=== PATIENT | male | born 1990 | race African-American/Black ===

== ENCOUNTER 2019-07-30 18:10 | Emergency (ER) | payer OTHER ==
--- NOTE | 2019-07-30 18:18 | PDOC ---
Rapid Medical Evaluation Chief Complaint: Pain, Acute Time Seen by Provider: 07/30/19 18:17 Medical Evaluation: 07/30/19 18:17 I have performed a brief in-person evaluation of this patient. The patient presents with a chief complaint of: right knee swelling Pertinent physical exam findings:stable and in NAD, non-focal I have ordered the following:labs The patient will proceed to the ED for further evaluation. Discharge Disposition - Discharge Dispostion Condition at time of disposition: Stable - Referrals - Patient Instructions - Post Discharge Activity
[2019-07-30 18:36] LABS: BASO % 1.3 % (0-2.0); EOS % 1.9 % (0-4.5); HEMOGLOBIN 11.7 GM/dL (11.7-16.9); LYMPH % 23.5 % (8-40); MCH 27.9 pg (25.7-33.7); MCHC 33.4 g/dl (32.0-35.9); MEAN CELL VOLUME 83.6 fl (80-96); MEAN PLT VOLUME 8.3 fl (7.5-11.1); MONO % 10.4 % (3.8-10.2); NEUT % 62.9 % (42.8-82.8); PLATELET COUNT 360 K/MM3 (134-434); RBC 4.19 M/mm3 (4.00-5.60); RDW 13.7 % (11.9-15.9)
--- NOTE | 2019-07-30 18:37 | PDOC ---
History of Present Illness - General Chief Complaint: Pain, Acute Stated Complaint: R KNEE PAIN Time Seen by Provider: 07/30/19 18:17 - History of Present Illness Initial Comments: 07/30/19 18:37 CHIEF COMPLAINT: Pain and swelling to R knee HISTORY OF PRESENT ILLNESS: 29 yo M with hx of IDDM, nephrotic sydrome, CKD, HTN , presents ED with R knee swelling and worsening pain x 2 days. Patient reports he went to see his PCP today and was sent to the ER to r/o septic arthritis due to pain with flexion/extension of his knee. Patient states he is fully ambulatory and weight bearing but with pain. No recent travel or sick contacts. PAST MEDICAL HISTORY: Denies past medical history FAMILY HISTORY: Denies SOCIAL HISTORY: Denies tobacco, alcohol, illicit drug use. SURGICAL HISTORY: Denies ALLERGIES: No known drug allergies REVIEW OF SYSTEMS General/Constitutional: Denies fever or chills. Denies weakness, weight change. HEENT: Denies change in vision. Denies ear pain or discharge. Denies sore throat. Cardiovascular: Denies chest pain or shortness of breath. Respiratory: Denies cough, wheezing, or hemoptysis. Gastrointestinal: Denies nausea, vomiting, diarrhea or constipation. Denies rectal bleeding. Genitourinary: Denies dysuria, frequency, or change in urination. Musculoskeletal: Pain and swelling to R knee. Skin and breasts: Denies rash or easy bruising. Neurologic: Denies headache, vertigo, loss of consciousness, or loss of sensation. Psychiatric: Denies depression or anxiety. PHYSICAL EXAM General Appearance: Well-appearing, appropriately dressed. No apparent distress. HEENT: EOMI, PERRLA, normal ENT inspection, normal voice, TMs normal, pharynx normal. No conjunctival pallor. No photophobia, scleral icterus. Neck: Supple. Trachea midline. No tenderness, rigidity, carotid bruit, stridor , lymphadenopathy, or thyromegaly. Respiratory/Chest: Lungs CTAB. No shortness of breath, chest tenderness, respiratory distress, accessory muscle use. No crackles, rales, rhonchi, stridor , wheezing, dullness Cardiovascular: RRR. S1, S2. No JVD, murmur, bradycardia, tachycardia. Vascular Pulses: Dorsalis-Pedis (R): 2+, Dorsalis-Pedis (L): 2+ Gastrointestinal/Abdominal: Normal bowel sounds. Abdomen soft, non-distended. No tenderness or rebound tenderness. No organomegaly, pulsatile mass, guarding , hernia, hepatomegaly, splenomegaly. Musculoskeletal/Extremities: Swelling to R knee, full flexion/extension. Normal inspection. FROM of all extremities, normal capillary refill. Pelvis Stable. No CVA tenderness. No tenderness to extremities, pedal edema, swelling , erythema or deformity. Integumentary: Appropriate color, dry, warm. No cyanosis, erythema, jaundice or rash Neurologic: sales executive II-XII intact. Fully oriented, alert. Appropriate mood/affect. Motor strength 5/5. No appreciable EOM palsy, facial droop or sensory deficit. Past History - Past Medical History Allergies/Adverse Reactions: Allergies Allergy/AdvReac Type Severity Reaction Status Date / Time No Known Allergies Allergy Verified 07/30/19 18:19 Home Medications: Ambulatory Orders Atorvastatin Calcium 40 mg PO DAILY 07/30/19 Carvedilol 12.5 mg PO DAILY 07/30/19 Furosemide 40 mg PO DAILY 07/30/19 Insulin Detemir [Levemir Flextouch] 14 unit SQ HS 07/30/19 Lisinopril [Prinivil -] 40 mg PO DAILY 07/30/19 Nifedipine [Nifedipine ER] 90 mg PO DAILY 07/30/19 predniSONE [Deltasone -] 60 mg PO DAILY #9 tablet 07/30/19 COPD: No Diabetes: Yes HTN: Yes Other medical history: nephrotic syndrome and CKD - Immunization History Immunization Up to Date: No - Psycho Social/Smoking Cessation Hx Smoking History: Never smoked Have you smoked in the past 12 months: No Information on smoking cessation initiated: No Hx Alcohol Use: No Drug/Substance Use Hx: No *Physical Exam - Vital Signs Last Vital Signs Temp Pulse Resp BP Pulse Ox 98.2 F 86 18 143/79 98 07/30/19 18:17 07/30/19 18:17 07/30/19 18:17 07/30/19 18:17 07/30/19 18:17 ED Treatment Course - LABORATORY CBC & Chemistry Diagram: 07/30/19 18:26 07/30/19 18:26 - ADDITIONAL ORDERS Additional order review: 07/30/19 18:26 RBC 4.19 MCV 83.6 MCHC 33.4 RDW 13.7 MPV 8.3 Neutrophils % 62.9 Lymphocytes % 23.5 Monocytes % 10.4 H Eosinophils % 1.9 Basophils % 1.3 Medical Decision Making - Medical Decision Making 07/30/19 18:46 29 yo M with hx of IDDM, nephrotic sydrome, CKD, HTN, presents ED with R knee swelling and worsening pain x 2 days. -labs -knee x-ray 07/30/19 19:[address] Ayoub who believes patient's creatinine of 4.9 "is around his baseline", she does not believe that this is an acute on chronic renal failure. 07/30/19 21:38 Discussed case with on-call orthopedist Dr. Lopez, who agrees there does not appear to be any clinical indication for joint aspiration as patient has no white count, has stable VS, and full ROM to R knee. Uric acid 7.8, likely pain and swelling secondary to gout. Prednisone, f/u with ortho Discharge - Discharge Information Problems reviewed: Yes Clinical Impression/Diagnosis: Gout Condition: Stable Disposition: HOME - Admission No - Additional Discharge Information Prescriptions: predniSONE [Deltasone -] 60 mg PO DAILY #9 tablet - Follow up/Referral Referrals: Yvonne Ayoub MD [Primary Care Provider] - Josse Lopez DO [Staff Physician] - - Patient Discharge Instructions Patient Printed Discharge Instructions: DI for Gout Additional Instructions: Please take medications as prescribed. You must follow up with Dr. Kong and Dr. Lopez this week for continued evaluation of your knee pain. If your knee becomes hot or red, or develop a fever, chills, nausea, vomiting or diarrhea, please return to the ER immediately. - Post Discharge Activity Work/Back to School Note: Back to Work
[2019-07-30 18:38] VITALS: BP 143/79; PULSE 86; TEMP 98.2; BMI 30.3
--- NOTE | 2019-07-30 18:38 | PDOC ---
*Physical Exam - Vital Signs Last Vital Signs Temp Pulse Resp BP Pulse Ox 98.2 F 86 18 143/79 98 07/30/19 18:17 07/30/19 18:17 07/30/19 18:17 07/30/19 18:17 07/30/19 18:17 ED Treatment Course - LABORATORY CBC & Chemistry Diagram: 07/30/19 18:26 07/30/19 18:26 - ADDITIONAL ORDERS Additional order review: 07/30/19 18:26 RBC 4.19 MCV 83.6 MCHC 33.4 RDW 13.7 MPV 8.3 Neutrophils % 62.9 Lymphocytes % 23.5 Monocytes % 10.4 H Eosinophils % 1.9 Basophils % 1.3 Medical Decision Making - Medical Decision Making 07/30/19 18:37 Pt seen by Midlevel Provider under my direct supervision Ancillary studies reviewed I agree with plan as outlined by Midlevel Provider Discharge - Discharge Information Problems reviewed: Yes Clinical Impression/Diagnosis: Gout Qualifiers: Gout site: knee Gout etiology: unspecified cause Chronicity: acute Laterality: left Qualified Code(s): M10.9 - Gout, unspecified Condition: Stable Disposition: HOME - Admission No - Additional Discharge Information Prescriptions: predniSONE [Deltasone -] 60 mg PO DAILY #9 tablet - Follow up/Referral Referrals: Yvonne Ayoub MD [Primary Care Provider] - Josse Lopez DO [Staff Physician] - - Patient Discharge Instructions Patient Printed Discharge Instructions: DI for Gout Additional Instructions: Please take medications as prescribed. You must follow up with Dr. Kong and Dr. Lopez this week for continued evaluation of your knee pain. If your knee becomes hot or red, or develop a fever, chills, nausea, vomiting or diarrhea, please return to the ER immediately. - Post Discharge Activity Work/Back to School Note: Back to Work
[2019-07-30 19:07] LABS: ALBUMIN 2.5 g/dl (3.4-5.0); BILIRUBIN,TOTAL 0.2 mg/dL (0.2-1); BLOOD UREA NITROGEN 73.1 mg/dL (7-18); CREATININE 4.9 mg/dL (0.55-1.3); POTASSIUM 4.6 mmol/L (3.5-5.1); TOT PROT 6.4 g/dl (6.4-8.2)
[2019-07-30 21:00] LABS: URIC ACID 7.8 mg/dL (2.6-7.2)
[2019-07-30] MEDS ORDERED: predniSONE 20 MG TABLET (UD) PO ONE (21:32)
[2019-07-30] MEDS ORDERED: predniSONE 20 MG TABLET (UD) ONE (21:47)
== END 2019-07-30 22:22 | disposition home or self-care (01) ==
LOC: JER 18:10
DX: M10.9 Gout, unspecified (principal); I12.9 Hypertensive chronic kidney disease with stage 1 through stage 4 chronic kidney disease, or unspecified chronic kidney disease; E10.22 Type 1 diabetes mellitus with diabetic chronic kidney disease; N18.9 Chronic kidney disease, unspecified; Z79.4 Long term (current) use of insulin; E10.21 Type 1 diabetes mellitus with diabetic nephropathy
CPT/HCPCS: 36415; 73562-TC-RT-FY; 80053; 84550; 85025; 99282-25

== ENCOUNTER → 2019-08-26 | Day surgery (SDC) | payer OTHER ==
[2019-08-25 12:50] VITALS: BMI 30.9
[~2019-08-26] MED LIST: LABETALOL HCL 100 MG TABLET (FP) PO ONE; LABETALOL HCL 200 MG TABLET (FP) PO ONE; NIFEdipine E.R 60 MG TABLET (UD) PO ONE
[2019-08-26 09:40] LABS: INR 0.93 (0.83-1.09)
[2019-08-26 11:46] VITALS: TEMP 98.2
[2019-08-26 14:49] VITALS: BP 135/86; PULSE 89
== END | disposition home or self-care (01) ==
LOC: JRADIR 08:16
PROVIDERS: ATTEND Internal Medicine Nephrology
DX: Z53.8 Procedure and treatment not carried out for other reasons (principal)
CPT/HCPCS: 36415; 82962; 85610

== ENCOUNTER 2019-09-01 08:18 | Day surgery (SDC) | payer OTHER ==
[2019-08-31 15:31] VITALS: BMI 30.9
[2019-09-01 08:44] VITALS: TEMP 97.8
[2019-09-01 17:09] VITALS: BP 150/84; PULSE 90
--- NOTE | 2019-09-17 16:14 | PATH ---
Surgical Pathology Report Patient Name: PRANAY SINCLAIR [facility]. Rec. #: [id number] /Age/Gender: 1990 (Age: 29) / M Account: [id number] Location: RADIOLOGY INTER Taken: 09/01/2019 Received: 09/01/2019 Reported: 09/17/2019 Physicians: Den Moreno M.D. Specimen(s) Received RENAL BIOPSY Clinical History 29-year-old male with IDDM, hypertension and CKD stage III now with worsening renal function and nephrotic range proteinuria, diabetic nephropathy versus FSGS Intraoperative Consult Diagnosis Renal biopsy: Glomeruli present. Patricia Herrera M.D., 09/01/2019 Final Diagnosis RENAL, BIOPSY NODULAR DIABETIC GLOMERULAR SCLEROSIS, MODERATE TUBULAR ATROPHY AND INTERSTITIAL FIBROSIS, MODERATE. ARTERIO-AND ARTERIOSCLEROSIS, MODERATE TO SEVERE. Comment: Immunofluorescence microscopy shows no evidence of renal disease of the immune complex type. Two additional globally sclerotic glomeruli are seen. Electron microscopy is pending and will be reported separately in an addendum. This case was sent to Dr. Juan Diego Trotter of [place], [place] ([id number]) the diagnosis above reflects his opinion. Microscopic Description: Sections are stained with H&E, PAS, trichrome, and JMS. Sections show 1 core of renal cortex with attached capsule. Five (5) glomeruli are seen, none of which show segmental or global sclerosis. Glomeruli are moderately enlarged and show moderate nodular mesangial sclerosis and diffuse thickening of basement membranes. No crescents, fibrinoid necrosis or fibrin thrombi are seen. Tubular basements membranes are diffusely thickened. There is moderate patchy tubular atrophy and interstitial fibrosis affecting 50% of the cortical area, accompanied by a patchy mononuclear inflammatory cell infiltrate. No interstitial eosinophils or granulomas are seen. Arteries show moderate intimal fibrosis and arterioles show moderate hyalinosis. There is no evidence of arteritis. IMMUNOFLUORESCENCE (PROCEDURE): Interpretation: GLOMERULI TUBULES INTERSTITIUM VESSELS IgG 9 gloms 1+ TBM's 1+ neg neg global linear GCW linear IgM 5 of 9 gloms 1+ neg neg arteriole kolb 1+ Seg tuft IgA 9 gloms neg casts 1+ neg neg C3 9 gloms 2+ neg neg arteriole wall 1+ Global gran mes C1 6 of 9 gloms 1+ neg neg neg Seg tuft FBGN 9 gloms neg neg neg neg ALB 9 gloms 1+ TBM's 1+ neg neg global linear GCW linear KAPPA 9 glom neg casts 1+ neg neg LAMBDA 9 gloms neg casts 1+ neg neg Positive and negative controls show appropriate reactivity. See [facility] report for additional details ([id number]). Electronically Signed Maryellen López M.D. Gross Description Received in saline labeled "renal biopsy," is a 1.1 cm in length x 0.1 cm in diameter [place]-red, cylindrical portion of soft tissue. The specimen is divided, placed into 10% buffered formalin, Jordy fixative and glutaraldehyde. The specimen is sent to [facility] for further studies. 09/01/2019 saudi09/01/2019
== END 2019-09-01 17:00 | disposition home or self-care (01) ==
LOC: JRADIR 08:18
PROVIDERS: ATTEND Internal Medicine Nephrology
PROC: 0TB03ZX Excision of Right Kidney, Percutaneous Approach, Diagnostic (ICD-10-PCS; principal; 2019-09-01)
DX: N26.9 Renal sclerosis, unspecified (principal); I12.9 Hypertensive chronic kidney disease with stage 1 through stage 4 chronic kidney disease, or unspecified chronic kidney disease; E11.22 Type 2 diabetes mellitus with diabetic chronic kidney disease; N18.3 Chronic kidney disease, stage 3 (moderate)
CPT/HCPCS: 50200; 76942-TC; 82962

== ENCOUNTER 2019-09-22 06:02 | Emergency (ER) | payer OTHER ==
[2019-09-22 06:56] VITALS: BP 167/95; PULSE 95; TEMP 98; BMI 30.3
--- NOTE | 2019-09-22 07:26 | PDOC ---
History of Present Illness - General Chief Complaint: Edema Stated Complaint: SWELLING,KNEES Time Seen by Provider: 09/22/19 07:13 History Source: Patient - History of Present Illness Occurred: reports: other Lower Extremity Pain Location: bilateral: other (thigh) Past History - Past Medical History Allergies/Adverse Reactions: Allergies Allergy/AdvReac Type Severity Reaction Status Date / Time No Known Allergies Allergy Verified 09/22/19 06:56 Home Medications: Ambulatory Orders Atorvastatin Calcium 40 mg PO DAILY 07/30/19 Insulin Detemir [Levemir Flextouch] 16 unit SQ HS 08/26/19 Insulin Sliding Scale [Novolog Vial Sliding Scale -] 100 units SQ ASDIR Labetalol HCl 100 mg PO BID 08/26/19 Sodium Zirconium Cyclosilicate [Lokelma] 10 gm PO DAILY 08/26/19 Torsemide 20 mg PO DAILY 08/26/19 Acetaminophen [Tylenol -] 1,000 mg PO Q6H #30 tablet 09/22/19 Anemia: No Asthma: No Cancer: No Cardiac Disorders: No CVA: No COPD: No CHF: No Dementia: No Diabetes: Yes (DM X 10 YEARS) GI Disorders: No Disorders: No HTN: Yes Hypercholesterolemia: No Liver Disease: No Seizures: No Thyroid Disease: No - Immunization History Immunization Up to Date: No - Psycho Social/Smoking Cessation Hx Smoking History: Never smoked Have you smoked in the past 12 months: No Hx Alcohol Use: Yes (SOCIAL) Drug/Substance Use Hx: No Substance Use Type: None Hx Substance Use Treatment: No Review of Systems - Review of Systems Constitutional: No: Chills, Fever Musculoskeletal: No: Joint Pain, Joint Swelling *Physical Exam - Vital Signs Last Vital Signs Temp Pulse Resp BP Pulse Ox 98 F 95 H 19 167/95 100 09/22/19 06:10 09/22/19 06:10 09/22/19 06:10 09/22/19 06:10 09/22/19 06:10 - Physical Exam General Appearance: Yes: Appropriately Dressed. No: Apparent Distress HEENT: positive: Normal Voice Respiratory/Chest: negative: Respiratory Distress Extremity: positive: Other (possibly mild swelling to distal L thigh compard to R, no swelling to knee joint, FROMI, ambulating in ER) Integumentary: positive: Dry, Warm Neurologic: positive: Fully Oriented, Alert, Normal Mood/Affect ED Treatment Course - LABORATORY CBC & Chemistry Diagram: 09/22/19 08:05 09/22/19 08:05 Medical Decision Making - Medical Decision Making 09/22/19 07:20 29 yo M, IDDM, nephrotic syndrome, HTN, CKD, here w/ b/l LE pain. Patient states 4 days ago he developed pain to distal left thigh unable to describe 6 out of 10 and worse with range of motion. Not taking anything for pain. At some point reports pain to right thigh though not as severe as on the left. No trauma or other obvious inciting factors. No recent travel. No fever or chills. Patient reports he might of had gout in the past possibly right knee. No joint swelling at this time. Of note, patient was seen here 07/2019 for R knee pain and swelling and found to have uric acid of 7.8. Was told to follow- up with orthopedist, Dr Lopez which patient did. States joint was aspirated and was told he had gout. No history of septic joint See exam B/l thigh pain, L>>R H/o gout though no joint swelling on exam today No f/c -As d/w ED attg, will get labs including uric acid lvl and control pain -Anticipate dc 09/22/19 09:07 XR with possible effusion. Uric acid 9.7. Creatinine around baseline. Patient reports some improvement with Tylenol. As discussed with ED attending, will dc with Tylenol and have patient follow-up with his kidney doctor this week Discharge - Discharge Information Problems reviewed: Yes Clinical Impression/Diagnosis: Knee pain Qualifiers: Chronicity: acute Laterality: bilateral Qualified Code(s): M25.561 - Pain in right knee; M25.562 - Pain in left knee Condition: Fair Disposition: HOME - Additional Discharge Information Prescriptions: Acetaminophen [Tylenol -] 1,000 mg PO Q6H #30 tablet - Follow up/Referral Referrals: Yvonne Ayoub MD [Primary Care Provider] - - Patient Discharge Instructions Additional Instructions: Your uric acid was mildly elevated today which could indicate an acute gout flareup Please take Tylenol as directed for your pain Please follow-up with your kidney doctor this week Return to ER for worsening of symptoms - Post Discharge Activity Work/Back to School Note: Back to Work
[2019-09-22] MEDS ORDERED: ACETAMINOPHEN 500 MG TABLET (FP) PO ONE (07:57)
[2019-09-22] MEDS ORDERED: ACETAMINOPHEN 325 MG TABLET (FP) ONE (08:00)
[2019-09-22] MEDS ORDERED: ACETAMINOPHEN 325 MG TABLET (FP) PO ONE (08:02)
[2019-09-22 08:24] LABS: EOS % 1.6 % (0-4.5); HEMATOCRIT 30.5 % (35.4-49); HEMOGLOBIN 10.2 GM/dL (11.7-16.9); LYMPH % 16.4 % (8-40); MCHC 33.6 g/dl (32.0-35.9); MEAN CELL VOLUME 83.3 fl (80-96); MONO % 7.3 % (3.8-10.2); NEUT % 73.7 % (42.8-82.8); PLATELET COUNT 375 K/MM3 (134-434); RBC 3.66 M/mm3 (4.00-5.60); RDW 14.8 % (11.9-15.9); WHITE BLOOD COUNT 7.6 K/mm3 (4.0-10.0)
[2019-09-22 08:43] LABS: ALBUMIN 2.8 g/dl (3.4-5.0); BILIRUBIN,TOTAL 0.3 mg/dL (0.2-1); BLOOD UREA NITROGEN 79.4 mg/dL (7-18); CALCIUM 7.2 mg/dL (8.5-10.1); CREATININE 5.9 mg/dL (0.55-1.3); POTASSIUM 4.6 mmol/L (3.5-5.1); TOT PROT 6.3 g/dl (6.4-8.2); URIC ACID 9.1 mg/dL (2.6-7.2)
== END 2019-09-22 10:37 | disposition home or self-care (01) ==
LOC: JER 06:02
DX: M25.561 Pain in right knee (principal); M25.562 Pain in left knee; M10.9 Gout, unspecified; I12.9 Hypertensive chronic kidney disease with stage 1 through stage 4 chronic kidney disease, or unspecified chronic kidney disease; E11.21 Type 2 diabetes mellitus with diabetic nephropathy; E11.22 Type 2 diabetes mellitus with diabetic chronic kidney disease; N18.9 Chronic kidney disease, unspecified; Z79.4 Long term (current) use of insulin
CPT/HCPCS: 36415; 73560-TC-LT-FY; 80053; 84550; 85025; 99281-25

== ENCOUNTER 2019-10-26 06:18 | Day surgery (SDC) | payer OTHER ==
[2019-10-22 14:54] VITALS: BMI 28.8
[2019-10-26] MEDS ORDERED: PAPAVERINE HCL 30 MG/1 ML 10 ML VIAL NR ONE (07:20)
[2019-10-26] MEDS ORDERED: HEPARIN NA (PORCINE) 5,000 UNITS/ML 1ML VIAL ONE (07:20)
[2019-10-26] MEDS ORDERED: LIDOCAINE HCL 1%, 10 MG/ML (20ML VIAL) ONE (07:21)
[2019-10-26] MEDS ORDERED: MIDAZOLAM HCL 2 MG/2 ML SINGLE DOSE VIAL ONE ×2 (07:58→08:39)
--- NOTE | 2019-10-26 08:23 | HP ---
Satellite [facility] - Chief Complaint History of Present Illness: 29 year old CKD stage 5 needs AV access for planned HD. History Source: Patient Limitations to Obtaining History: No Limitations - Past Medical History Allergies/Adverse Reactions: Allergies Allergy/AdvReac Type Severity Reaction Status Date / Time No Known Allergies Allergy Verified 10/26/19 07:14 Cardiovascular: Yes: HTN Renal/: Yes: Renal Inusuff Endocrine: Yes: Diabetes Mellitus - Current Medications Current Medications: Home Medications Medication Instructions Recorded Insulin Detemir [Levemir Flextouch] 18 unit SQ HS 08/26/19 Insulin Sliding Scale [Novolog 7 units SQ TID 08/26/19 Vial Sliding Scale -] Labetalol HCl 100 mg PO BID 08/26/19 Sodium Zirconium Cyclosilicate 10 gm PO DAILY 08/26/19 [Lokelma] Nifedipine [Nifedipine ER] 60 mg PO BID 10/22/19 Satellite Physical Exam - Physical Examination Vital Signs: Vital Signs Period Temp Pulse Resp BP Sys/Hansen Pulse Ox Last 24 Hr 98.1 F 89 16 126/85 100 General Appearance: Well Nourished ENT: Clear Lung: Clear to auscultation Heart: Regular rate & rhythm Abdomen: Soft Extremities: No edema Satellite Impression/Plan - Impression/Plan Impression: CKD Operative Procedure: Creation AV fistula left arm Date to be Performed: 10/26/19
[2019-10-26] MEDS ORDERED: PROPOFOL 20 ML ONE ×3 (08:35)
[2019-10-26] MEDS ORDERED: LIDOCAINE HCL 1%, 10 MG/ML (20ML VIAL) PNB ONE (09:25)
[2019-10-26] MEDS ORDERED: HEPARIN NA (PORCINE) 5,000 UNITS/ML 1ML VIAL TP ONE (09:25)
[2019-10-26] MEDS ORDERED: POVIDONE-IODINE 5% OPHTHALMIC PREP 30 ML SOLUTION ONE (09:37)
[2019-10-26] MEDS ORDERED: ACETAMINOPHEN 325 MG TABLET (FP) PO PRN ×2 (09:47→10:19)
--- NOTE | 2019-10-26 09:47 | OP ---
Operative Note - Note: Operative Date: 10/26/19 Pre-Operative Diagnosis: CKD Operation: Creation AV fistula left arm Findings: Patent cephalic vein and radial artery Post-Operative Diagnosis: Same as Pre-op Surgeon: Stas Esquivel Anesthesiologist/PLATE SENSITIZER: Ezequiel Villafuerte Anesthesia: Fractional Estimated Blood Loss (mls): 10
[2019-10-26] MEDS ORDERED: oxyCODONE HCL 5 MG TABLET PO PRN ×2 (09:53→10:19)
[2019-10-26] MEDS ORDERED: PROMETHAZINE HCL 25 MG/1 ML VIAL IVPUSH PRN (09:53)
[2019-10-26] MEDS ORDERED: ONDANSETRON 4 MG/2 ML VIAL IVPUSH PRN (09:53)
[2019-10-26] MEDS ORDERED: oxyCODONE HCL 5 MG TABLET ONE (11:47)
[2019-10-26 14:43] VITALS: BP 147/78; PULSE 78; TEMP 97.8
--- NOTE | 2019-10-27 17:42 | OP ---
DATE OF OPERATION: 10/26/2019 SURGEON: Stas Palmer MD PROCEDURE: Creation arteriovenous fistula, left arm. PREOPERATIVE DIAGNOSIS: Chronic kidney disease. POSTOPERATIVE DIAGNOSIS: Chronic kidney disease. ANESTHESIA: Fractional. ANESTHESIOLOGIST: Ezequiel Villafuerte MD OPERATIVE FINDINGS: The left cephalic vein and radial artery were patent with adequate diameter for AV fistula creation. OPERATIVE PROCEDURE: Following routine patient identification with site and side verification, intravenous sedation was established. The left arm was prepped with ChloraPrep. Time-out was performed; 1% lidocaine was infiltrated proximal to the wrist over the cephalic vein. The vein was exposed through a longitudinal incision using cautery for hemostasis. The vein was ligated distally and incised. It was distended with heparin and papaverine solution. No. 5 and No. 8 feeding tubes were passed proximally without resistance. The vein was filled with heparin solution and occluded with a small Bulldog clamp. The vein was freed for the length of the incision, and small side branches were ligated and divided. The radial artery was then exposed through the same incision, encircled with Vessel Loops. Side branches were ligated and divided. The artery was then occluded with the Vessel Loops and opened with a longitudinal arteriotomy measuring approximately 6 mm. The end of the vein was spatulated and anastomosed to the side of the artery with running suture of 6-0 Prolene. Prior to completion of the suture line, the artery was allowed to back bleed and flush, and the vein was flushed with heparin solution. Suture line was completed. Vessels were released. There was good flow through the anastomosis with a palpable thrill in the vein. Wound was closed with interrupted suture of 3-0 Vicryl and skin ame. Sterile dressings were applied, and the patient was taken to the recovery room in stable condition. STAS PALMER M.D. [id number]
== END 2019-10-26 13:15 | disposition home or self-care (01) ==
LOC: JASU-SURG 06:18
PROVIDERS: ATTEND Surgery
PROC: 031C3ZF Bypass Left Radial Artery to Lower Arm Vein, Percutaneous Approach (ICD-10-PCS; principal; 2019-10-26 08:00)
DX: I12.0 Hypertensive chronic kidney disease with stage 5 chronic kidney disease or end stage renal disease (principal); E11.22 Type 2 diabetes mellitus with diabetic chronic kidney disease; N18.6 End stage renal disease; Z99.2 Dependence on renal dialysis; Z79.4 Long term (current) use of insulin
CPT/HCPCS: 36415; 84132; 94760; J1644

== ENCOUNTER 2019-11-03 15:46 | Day surgery (SDC) | payer OTHER ==
[2019-11-03 16:32] VITALS: TEMP 98.1
[2019-11-03] MEDS ORDERED: FERRIC CARBOXYMALTOSE 750 MG in SODIUM CHLORIDE 250 ML IVPB SCH (17:00)
[2019-11-03 18:54] VITALS: BP 150/78; PULSE 70
== END 2019-11-03 18:54 | disposition home or self-care (01) ==
LOC: JASU-ENDO 15:46 → J7W 16:00 → JASU-ENDO 18:54
PROVIDERS: ATTEND Internal Medicine Nephrology
DX: D50.9 Iron deficiency anemia, unspecified (principal)
CPT/HCPCS: 96365; J1439

== ENCOUNTER 2019-11-10 15:02 | Day surgery (SDC) | payer OTHER ==
[2019-11-10] MEDS ORDERED: FERRIC CARBOXYMALTOSE 750 MG in SODIUM CHLORIDE 250 ML IVPB ONE (16:30)
[2019-11-10 16:35] VITALS: TEMP 98.8
[2019-11-10 17:54] VITALS: BP 134/75; PULSE 92
== END 2019-11-10 17:56 | disposition home or self-care (01) ==
LOC: JINFUSION 15:02 → JASU-ENDO 15:02 → J7W 15:03 → JINFUSION 17:56
PROVIDERS: ATTEND Internal Medicine Nephrology
DX: D50.9 Iron deficiency anemia, unspecified (principal)
CPT/HCPCS: 96365; 96366; J1439